=== PATIENT | male | born 1940 | race Caucasian/White ===

== ENCOUNTER 2019-06-18 12:06 | Emergency (ER) | payer MEDICARE, MEDICAID ==
[~2019-06-18] VITALS: Ht 167.6 cm; Wt 103.3 kg
[2019-06-18] MEDS ORDERED: LAMO200T2 PO (12:44)
[2019-06-18] MEDS ORDERED: LISI-600 PO (12:44)
[2019-06-18] MEDS ORDERED: LAMO100T40 PO (12:44)
[2019-06-18] MEDS ORDERED: PRAV10TA39 PO (12:44)
[2019-06-18] MEDS ORDERED: ASPI-611 PO (12:44)
[2019-06-18 13:20] LABS: BASOPHILS % (AUTO) 0.6 % (0-1); EOSINOPHILS # (AUTO) 0.1 X10'3 (0-0.9); EOSINOPHILS % (AUTO) 2.1 % (0-6); HEMATOCRIT 39.9 % (42.0-52.0); HEMOGLOBIN 13.5 g/dl (14.0-17.9); LYMPHOCYTES # (AUTO) 1.7 X10'3 (1.1-4.8); LYMPHOCYTES % (AUTO) 23.9 % (21-51); MEAN CORPUSCULAR HEMOGLOBIN 31.7 PG (27.0-31.0); MEAN CORPUSCULAR HGB CONC 33.8 g/dL (33.0-36.5); MEAN CORPUSCULAR VOLUME 93.7 FL (78-98); MEAN PLATELET VOLUME 8.6 FL (7.4-10.4); MONOCYTES # (AUTO) 0.6 X10'3 (0-0.9); NEUTROPHILS # (AUTO) 4.6 X10'3 (1.8-7.7); NEUTROPHILS % (AUTO) 65.4 % (42-75); PLATELET COUNT 224 X10'3 (140-440); RED BLOOD COUNT 4.25 X10'6 (4.70-6.10)
[2019-06-18 13:28] LABS: PARTIAL THROMBOPLASTIN TIME 28 SECONDS (22-32)
[2019-06-18 13:29] VITALS: BP 150/85
[2019-06-18 13:30] LABS: ALANINE AMINOTRANSFERASE 27 U/L (12-78); ALBUMIN 3.3 G/DL (3.4-5.0); ALBUMIN/GLOBULIN RATIO 0.7 (1.1-1.5); ALKALINE PHOSPHATASE 88 IU/L (46-116); ANION GAP 7 (8-16); ASPARTATE AMINO TRANSFERASE 17 U/L (10-37); BILIRUBIN,TOTAL 0.2 MG/DL (0.1-1.0); BLOOD UREA NITROGEN 16 MG/DL (7-18); BUN/CREATININE RATIO 12.4 (5.4-32.0); CALCIUM 9.6 MG/DL (8.5-10.1); CHLORIDE 105 MMOL/L (99-107); CREATININE 1.29 MG/DL (0.60-1.10); GLUCOSE 113 MG/DL (70-104); POTASSIUM 4.2 MMOL/L (3.5-5.1); SODIUM 141 MMOL/L (135-145); TOTAL PROTEIN 7.8 G/DL (6.4-8.2); eGFR 54 ML/MIN
[2019-06-18 13:33] LABS: TROPONIN I < 0.04 NG/ML (0.0-0.05)
[2019-06-18 13:44] LABS: ETHANOL < 0.010 GM/DL (0.0-0.010)
[2019-06-18 14:22] LABS: CLARITY,URINE SLIGHTLY CLOUDY (Clear); COLOR,URINE YELLOW (Yellow); GLUCOSE, URINE NEGATIVE (Neg); KETONES,URINE NEGATIVE (Neg); LEUKOCYTE ESTERASE ,URINE SMALL (Neg); NITRITES, URINE NEGATIVE (Neg); OCCULT BLOOD,URINE TRACE-INTACT (Neg); PROTEIN,URINE TRACE mg/dl (Neg); UROBILINOGEN,URINE 0.2 E.U/dL (0.2-1.0)
[2019-06-18 14:24] LABS: UA COLLECTION TYPE URINAL
[2019-06-18 14:28] LABS: URINE AMPHETAMINE SCREEN NEGATIVE (Neg); URINE BARBITUATE SCREEN NEGATIVE (Neg); URINE BENZODIAZEPINES SCREEN NEGATIVE (Neg); URINE CANNABINOID SCREEN NEGATIVE (Neg); URINE COCAINE SCREEN NEGATIVE (Neg); URINE METHADONE SCREEN NEGATIVE (Neg); URINE OPIATE SCREEN NEGATIVE (Neg); URINE PHENCYCLIDINE SCREEN NEGATIVE (Neg)
[2019-06-18 14:48] LABS: BACTERIA,URINE 1+ /HPF (Neg); RBC,URINE 0-2 /HPF (0-2); SQUAMOUS EPITHELIAL CELL,UR MODERATE /LPF (FEW); WBC,URINE 50-100 /HPF (0-4)
[2019-06-18 14:49] LABS: MUCUS STRANDS MANY /LPF (Neg)
== END 2019-06-18 15:00 | disposition home or self-care (01) ==
LOC: ER 12:07
DX: F91.9 Conduct disorder, unspecified (principal); Z79.82 Long term (current) use of aspirin; Z79.899 Other long term (current) drug therapy; Z79.01 Long term (current) use of anticoagulants
CPT/HCPCS: 36415; 70450; 71045; 80053; 80305; 80320; 81001; 84484; 85025; 85610; 85730; 87088; 93005; 99284

== ENCOUNTER 2019-12-02 15:58 | Emergency (ER) | payer MEDICARE, MEDICAID ==
[~2019-12-02] VITALS: Ht 167.6 cm; Wt 90.9 kg
[~2019-12-02 15:58] MED LIST: ASPI-611 PO; LAMO100T40 PO; LAMO200T2 PO; LISI-600 PO; PRAV10TA39 PO
[2019-12-02] MEDS ORDERED: normal saline 1000ML IV soln IV ONE (16:40)
[2019-12-02] MEDS ORDERED: acetaminophen 325mg tablet PO STA (17:34)
--- NOTE | 2019-12-02 17:36 | NUR ---
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
[2019-12-02 17:52] LABS: BASOPHILS % (AUTO) 0.5 % (0-1); EOSINOPHILS # (AUTO) 0.1 X10'3 (0-0.9); EOSINOPHILS % (AUTO) 1.4 % (0-6); HEMATOCRIT 44.8 % (42.0-52.0); HEMOGLOBIN 15.1 g/dl (14.0-17.9); LYMPHOCYTES # (AUTO) 1.6 X10'3 (1.1-4.8); LYMPHOCYTES % (AUTO) 18.8 % (21-51); MEAN CORPUSCULAR HEMOGLOBIN 31.2 PG (27.0-31.0); MEAN CORPUSCULAR HGB CONC 33.6 g/dL (33.0-36.5); MEAN CORPUSCULAR VOLUME 92.8 FL (78-98); MEAN PLATELET VOLUME 9.1 FL (7.4-10.4); MONOCYTES # (AUTO) 0.5 X10'3 (0-0.9); MONOCYTES % (AUTO) 6.1 % (2-12); NEUTROPHILS # (AUTO) 6.1 X10'3 (1.8-7.7); NEUTROPHILS % (AUTO) 73.2 % (42-75); PLATELET COUNT 243 X10'3 (140-440); RED BLOOD COUNT 4.83 X10'6 (4.70-6.10); RED CELL DISTRIBUTION WIDTH 14.3 % (11.5-14.5); WHITE BLOOD COUNT 8.3 X10'3 (4.5-11.0)
[2019-12-02 18:28] LABS: CLARITY,URINE SLIGHTLY CLOUDY (Clear); COLOR,URINE YELLOW (Yellow); GLUCOSE, URINE NEGATIVE (Neg); KETONES,URINE TRACE mg/dl (Neg); LEUKOCYTE ESTERASE ,URINE NEGATIVE (Neg); NITRITES, URINE NEGATIVE (Neg); OCCULT BLOOD,URINE NEGATIVE (Neg); PROTEIN,URINE 30 mg/dl (Neg); UROBILINOGEN,URINE 0.2 E.U/dL (0.2-1.0)
[2019-12-02 18:33] LABS: UA COLLECTION TYPE VOIDED
[2019-12-02 18:42] LABS: ALANINE AMINOTRANSFERASE 17 U/L (12-78); ALBUMIN 3.3 G/DL (3.4-5.0); ALBUMIN/GLOBULIN RATIO 0.8 (1.1-1.5); ALKALINE PHOSPHATASE 78 IU/L (46-116); ANION GAP 6 (8-16); ASPARTATE AMINO TRANSFERASE 15 U/L (10-37); BILIRUBIN,TOTAL 0.3 MG/DL (0.1-1.0); BLOOD UREA NITROGEN 13 MG/DL (7-18); BUN/CREATININE RATIO 8.1 (5.4-32.0); CALCIUM 8.8 MG/DL (8.5-10.1); CHLORIDE 106 MMOL/L (99-107); CREATININE 1.61 MG/DL (0.60-1.10); GLUCOSE 102 MG/DL (70-104); POTASSIUM 3.9 MMOL/L (3.5-5.1); SODIUM 141 MMOL/L (135-145); TOTAL CARBON DIOXIDE 28.9 MMOL/L (24-32); TOTAL PROTEIN 7.4 G/DL (6.4-8.2); eGFR 42 ML/MIN
[2019-12-02 18:44] LABS: BACTERIA,URINE NONE SEEN /HPF (Neg); MUCUS STRANDS FEW /LPF (Neg); RBC,URINE 0-2 /HPF (0-2); RENAL CELLS, URINE FEW /HPF; SQUAMOUS EPITHELIAL CELL,UR MODERATE /LPF (FEW); WBC,URINE 0-4 /HPF (0-4)
--- NOTE | 2019-12-02 19:35 | NUR ---
pt with stable vs and no pain. Pt now DC ready. Afebriile.
[2019-12-02 19:36] VITALS: BP 129/79
--- NOTE | 2019-12-02 19:55 | NUR ---
Pts ride here for DC. Pt assisted into WC for DC.Just prior to leaving, having episode of right frontal , behind ther right eye, head pain. States this is chronic and it will go away with holding pressure or his wet cold washcloth to the eye. states this is why he is takinig the lamotragine.
--- NOTE | 2019-12-03 11:39 | NUR ---
Patients blood culture resulted a postive result. Dr. Mckenna stated to call patient and check for worsening or continued symptoms. Patient reported that he was feeling much better and no longer had a headache. Dr. Mckenna stated that no prescription was needed at this time. Patient informed that if symptoms worsened, he could always return.
== END 2019-12-02 19:57 | disposition home or self-care (01) ==
LOC: ER 15:59
DX: E86.0 Dehydration (principal); Z20.828 Contact with and (suspected) exposure to other viral communicable diseases; B34.9 Viral infection, unspecified; R53.1 Weakness; R51 Headache; R50.9 Fever, unspecified; Z79.82 Long term (current) use of aspirin; Z79.899 Other long term (current) drug therapy
CPT/HCPCS: 36415; 71045; 80053; 81001; 83605; 84145; 85025; 87040; 87077; 87186; 87635; 93005; 96360; 99285; J7030

== ENCOUNTER 2019-12-11 17:26 | Emergency (ER) | payer MEDICARE, MEDICAID ==
[~2019-12-11] VITALS: Ht 167.6 cm; Wt 100.0 kg
[2019-12-11 17:33] VITALS: BP 172/78
[2019-12-11] MEDS ORDERED: gabapentin 400mg capsule PO STA (17:38)
[2019-12-11] MEDS ORDERED: LAMO250T2 PO (17:42)
[2019-12-11] MEDS ORDERED: GABA300C PO (17:42)
--- NOTE | 2019-12-11 17:59 | NUR ---
Patient seen and assessed by provider.
== END 2019-12-11 17:59 | disposition home or self-care (01) ==
LOC: ER 17:27
DX: R51 Headache (principal); G62.9 Polyneuropathy, unspecified; Z79.82 Long term (current) use of aspirin; Z79.899 Other long term (current) drug therapy
CPT/HCPCS: 99283

== ENCOUNTER 2020-01-04 18:05 | Inpatient (IN) | payer MEDICARE, MEDICAID ==
[~2020-01-04] VITALS: Ht 170.2 cm; Wt 100.0 kg
[~2020-01-04 18:05] MED LIST changes: +CefTRIAXone 2gm/D5W 50ml 50 ML IV SCH; +GABA300C PO; +LAMO250T2 PO
[2020-01-04] MEDS ORDERED: normal saline 1000ML IV soln IVB ONE ×2 (18:25→19:20)
--- NOTE | 2020-01-04 18:34 | NUR ---
Contacted first contact, granddaughter, who states she doesn't speak much to pt. anymore. Believes he lives with his GF "Pamella", doesn't have a number and doesn't know anything about PMH. 2nd contact is daughter, granddaughter states she doesn't talk to pt. anymore either.
[2020-01-04 18:44] LABS: BASOPHILS % (AUTO) 0.5 % (0-1); EOSINOPHILS # (AUTO) 0.1 X10'3 (0-0.9); EOSINOPHILS % (AUTO) 0.8 % (0-6); HEMATOCRIT 43.1 % (42.0-52.0); HEMOGLOBIN 14.5 g/dl (14.0-17.9); LYMPHOCYTES # (AUTO) 0.9 X10'3 (1.1-4.8); LYMPHOCYTES % (AUTO) 10.7 % (21-51); MEAN CORPUSCULAR HEMOGLOBIN 30.9 PG (27.0-31.0); MEAN CORPUSCULAR HGB CONC 33.6 g/dL (33.0-36.5); MEAN CORPUSCULAR VOLUME 91.9 FL (78-98); MEAN PLATELET VOLUME 8.6 FL (7.4-10.4); MONOCYTES # (AUTO) 0.3 X10'3 (0-0.9); MONOCYTES % (AUTO) 3.9 % (2-12); NEUTROPHILS # (AUTO) 7.2 X10'3 (1.8-7.7); NEUTROPHILS % (AUTO) 84.1 % (42-75); PLATELET COUNT 216 X10'3 (140-440); RED CELL DISTRIBUTION WIDTH 14.3 % (11.5-14.5); WHITE BLOOD COUNT 8.6 X10'3 (4.5-11.0)
[2020-01-04 18:51] LABS: PARTIAL THROMBOPLASTIN TIME 27 SECONDS (22-32)
[2020-01-04 18:53] LABS: ALANINE AMINOTRANSFERASE 16 U/L (12-78); ALBUMIN 3.6 G/DL (3.4-5.0); ALBUMIN/GLOBULIN RATIO 0.9 (1.1-1.5); ALKALINE PHOSPHATASE 70 IU/L (46-116); ANION GAP 14 (8-16); ASPARTATE AMINO TRANSFERASE 18 U/L (10-37); BILIRUBIN,TOTAL 0.5 MG/DL (0.1-1.0); BLOOD UREA NITROGEN 20 MG/DL (7-18); BUN/CREATININE RATIO 14.2 (5.4-32.0); CALCIUM 9.7 MG/DL (8.5-10.1); CHLORIDE 105 MMOL/L (99-107); CREATININE 1.41 MG/DL (0.60-1.10); GLUCOSE 142 MG/DL (70-104); POTASSIUM 3.6 MMOL/L (3.5-5.1); SODIUM 143 MMOL/L (135-145); TOTAL CARBON DIOXIDE 24.5 MMOL/L (24-32); TOTAL PROTEIN 7.8 G/DL (6.4-8.2); eGFR 49 ML/MIN
[2020-01-04 18:56] LABS: ETHANOL < 0.010 GM/DL (0.0-0.010); LIPASE 173 U/L (73-393); TROPONIN I < 0.04 NG/ML (0.0-0.05)
[2020-01-04 18:58] LABS: LACTIC SEPSIS 1.4 MMOL/L (0.4-2.0)
[2020-01-04 18:59] LABS: AMMONIA < 10 UMOL/L (11-32)
[2020-01-04 19:17] LABS: CLARITY,URINE SLIGHTLY CLOUDY (Clear); COLOR,URINE YELLOW (Yellow); GLUCOSE, URINE NEGATIVE (Neg); KETONES,URINE 40 mg/dl (Neg); LEUKOCYTE ESTERASE ,URINE NEGATIVE (Neg); NITRITES, URINE NEGATIVE (Neg); OCCULT BLOOD,URINE TRACE-INTACT (Neg); PH,URINE 5.5 (4.8-8.0); PROTEIN,URINE 100 mg/dl (Neg); UROBILINOGEN,URINE 0.2 E.U/dL (0.2-1.0)
[2020-01-04 19:19] LABS: UA COLLECTION TYPE STRAIGHT CATH
[2020-01-04] MEDS ORDERED: ondansetron/PF 4mg/2ml inj IV ONE (19:20)
[2020-01-04 19:25] LABS: MUCUS STRANDS MANY /LPF (Neg); SQUAMOUS EPITHELIAL CELL,UR MODERATE /LPF (FEW); TRANSITIONAL EPI CELLS,URINE MODERATE /HPF
[2020-01-04 19:27] LABS: URINE AMPHETAMINE SCREEN NEGATIVE (Neg); URINE BARBITUATE SCREEN NEGATIVE (Neg); URINE BENZODIAZEPINES SCREEN NEGATIVE (Neg); URINE CANNABINOID SCREEN NEGATIVE (Neg); URINE COCAINE SCREEN NEGATIVE (Neg); URINE METHADONE SCREEN NEGATIVE (Neg); URINE OPIATE SCREEN NEGATIVE (Neg); URINE PHENCYCLIDINE SCREEN NEGATIVE (Neg)
[2020-01-04 19:28] LABS: AMORPHOUS URATES 1+; BACTERIA,URINE FEW /HPF (Neg); RBC,URINE 0-2 /HPF (0-2)
--- NOTE | 2020-01-04 20:05 | NUR ---
MD Castle report that pt had stroke signs on CT with unknown time of onset and to activate level 2 stroke alert for the patient.
[2020-01-04] MEDS ORDERED: non-formulary drug (Lamotrigine* (Lamictal*) 1 TAB) PO SCH (21:00)
[2020-01-04] MEDS ORDERED: aspirin 81mg tab.chew PO SCH (21:00)
[2020-01-04] MEDS ORDERED: lamoTRIgine 100mg tablet PO SCH (21:00)
[2020-01-04] MEDS ORDERED: mag hydrox/Alum hydrox/simeth 30ml oral suspension PO PRN (21:05)
[2020-01-04] MEDS ORDERED: ondansetron/PF 4mg/2ml inj IV PRN (21:05)
[2020-01-04] MEDS ORDERED: acetaminophen 325mg tablet PO PRN ×2 (21:05)
[2020-01-04] MEDS ORDERED: magnesium Cl slow-release 64mg tablet PO PRN (21:05)
[2020-01-04] MEDS ORDERED: potassium Cl 20 mEq SR tablet PO PRN ×2 (21:05)
[2020-01-04] MEDS ORDERED: magnesium 2GM in 50ml NS 50 ML IV PRN (21:05)
[2020-01-04] MEDS ORDERED: magnesium 4gm in 100ml NS 100 ML IV PRN (21:05)
[2020-01-04] MEDS ORDERED: potassium CL 10mEq/100ml bag 100 ML IV PRN ×2 (21:05)
[2020-01-04 21:09] VITALS: BP 165/83
--- NOTE | 2020-01-04 22:00 | NUR ---
Patient in room [facility]. I have received report from Dread HASSAN and had the opportunity to ask questions and assume patient care.
--- NOTE | 2020-01-04 23:45 | NUR ---
Pt vomited and was suctioned. Wheezing but able to clear secretions
[2020-01-04] MEDS: CefTRIAXone 2gm/D5W 50ml 50 ML IV SCH (23:54)
[2020-01-04] MEDS: normal saline 1000ml 1,000 ML IV SCH (23:54)
--- NOTE | 2020-01-05 00:20 | NUR ---
Dr. Jimenez arrived to floor to eval pt for kidney stone symptoms, pt stated has had stones in past with severe pain, no surgery done previously, pt stated he was able to pass stones.
--- NOTE | 2020-01-05 00:30 | NUR ---
Right lip and nasal, labial fold are flat. Left eyelid Ptosis & Left eyebrow will not raise Addendum: 01/05/20 at 0121 by Jeanie Hannon RN Amended: Links added.
--- NOTE | 2020-01-05 00:30 | NUR ---
Patient has left eye droop/ ptosis and the eye brows will not lift on the left side; he has right facial droop of the upper lip and nasolabial fold on the right. He is very slurred in speech and tongue seems to be midline but does move to the right somewhat, he does have bilateral gag reflex when tested. He is very drowsy but when awakes he will joke appropriately with staff. Denies nausea and dizziness at this time. Addendum: 01/05/20 at 0159 by Kavita Joel RN Amended: Links added.
[2020-01-05 01:25] VITALS: BP 158/70
--- NOTE | 2020-01-05 02:20 | NUR ---
Paged Dr. Granados to let her know that I am concerned that patient looks like his stroke symptoms are worsening.
[2020-01-05] MEDS ORDERED: aspirin 300mg supp.rect RC ONE (02:25)
--- NOTE | 2020-01-05 02:26 | NUR ---
Dr. Granados was made aware of worsening of stroke like symptoms and is having the patient get a dose of asa per suppository since he can't swallow. I gave her my NIHSS score of 7 compared to the neurologist score of 3.
--- NOTE | 2020-01-05 02:57 | NUR ---
unable to assess vision loss Addendum: 01/05/20 at 0258 by Jeanie Hannon RN Amended: Links added.
--- NOTE | 2020-01-05 03:36 | NUR ---
Page Sent promotional table spacer PAGER ID: [phone] MESSAGE: Patient room #358 B -Surgical, [facility]. Pt had straight cath in ED, has not voided since arriving to floor. Bladder scan shows shows 680 mls. Please advise. Ankush HASSAN [id number]
--- NOTE | 2020-01-05 03:37 | NUR ---
Dr. Granados called back order straight cath once more, if patient still unable to void considering [facility]
[2020-01-05 04:37] LABS: BASOPHILS % (AUTO) 0.1 % (0-1); EOSINOPHILS % (AUTO) 0 % (0-6); HEMATOCRIT 40.3 % (42.0-52.0); HEMOGLOBIN 13.4 g/dl (14.0-17.9); LYMPHOCYTES # (AUTO) 1.2 X10'3 (1.1-4.8); LYMPHOCYTES % (AUTO) 12.9 % (21-51); MEAN CORPUSCULAR HEMOGLOBIN 30.8 PG (27.0-31.0); MEAN CORPUSCULAR HGB CONC 33.3 g/dL (33.0-36.5); MEAN CORPUSCULAR VOLUME 92.5 FL (78-98); MEAN PLATELET VOLUME 8.9 FL (7.4-10.4); MONOCYTES # (AUTO) 0.5 X10'3 (0-0.9); MONOCYTES % (AUTO) 4.9 % (2-12); NEUTROPHILS # (AUTO) 7.5 X10'3 (1.8-7.7); NEUTROPHILS % (AUTO) 82.1 % (42-75); PLATELET COUNT 213 X10'3 (140-440); RED BLOOD COUNT 4.36 X10'6 (4.70-6.10); WHITE BLOOD COUNT 9.2 X10'3 (4.5-11.0)
[2020-01-05 04:48] LABS: ALANINE AMINOTRANSFERASE 14 U/L (12-78); ALBUMIN 3.3 G/DL (3.4-5.0); ALBUMIN/GLOBULIN RATIO 0.9 (1.1-1.5); ALKALINE PHOSPHATASE 62 IU/L (46-116); ANION GAP 8 (8-16); ASPARTATE AMINO TRANSFERASE 15 U/L (10-37); BILIRUBIN,TOTAL 0.3 MG/DL (0.1-1.0); BLOOD UREA NITROGEN 15 MG/DL (7-18); BUN/CREATININE RATIO 12.1 (5.4-32.0); CALCIUM 8.5 MG/DL (8.5-10.1); CHLORIDE 108 MMOL/L (99-107); CHOL/HDL RATIO 6.8 (0.00-4.99); CHOLESTEROL 230 MG/DL (0-200); CREATININE 1.24 MG/DL (0.60-1.10); GLUCOSE 110 MG/DL (70-104); HDL CHOLESTEROL 34 MG/DL (35-60); LDL CHOLESTEROL 169 MG/DL (50-100); MAGNESIUM 1.9 MG/DL (1.5-2.4); POTASSIUM 3.7 MMOL/L (3.5-5.1); SODIUM 143 MMOL/L (135-145); TOTAL CARBON DIOXIDE 26.8 MMOL/L (24-32); TOTAL PROTEIN 7.1 G/DL (6.4-8.2); TRIGLYCERIDES 69 MG/DL (20-135); eGFR 56 ML/MIN
--- NOTE | 2020-01-05 04:50 | NUR ---
Just noted stat order for Carotid US, MRA, MRI. Paged sonography for the carotid study, however MRI & MRA cannot be done until 8am as they are not on-call.
[2020-01-05 05:20] VITALS: BP 178/79
--- NOTE | 2020-01-05 06:42 | NUR ---
Problems reprioritized. Patient report given, questions answered & plan of care reviewed with Yajaira Swain RN.
[2020-01-05 07:00] VITALS: BP 165/70
[2020-01-05] MEDS: normal saline 1000ml 1,000 ML IV SCH (07:01)
[2020-01-05] MEDS ORDERED: atorvastatin 20mg tablet PO SCH ×2 (08:00)
[2020-01-05] MEDS ORDERED: heparin, porcine 5000 units/ml vial SQ SCH (08:00)
[2020-01-05] MEDS ORDERED: pravastatin 10mg tablet PO SCH (08:00)
[2020-01-05] MEDS: CefTRIAXone 2gm/D5W 50ml 50 ML IV SCH (08:00)
[2020-01-05] MEDS ORDERED: lisinopril 10 MG tablet PO SCH (08:00)
[2020-01-05] MEDS ORDERED: tamsulosin 0.4mg capsule PO SCH (08:00)
[2020-01-05] MEDS ORDERED: K and/or MAG REPLACEMENT MC SCH (08:00)
[2020-01-05] MEDS ORDERED: docusate sod 100mg capsule PO SCH (08:00)
--- NOTE | 2020-01-05 08:03 | NUR ---
PATIENTS MENTATION IS WAXING AND WAYING, HE TALKS THEN FALLS ASLEEP. Addendum: 01/05/20 at 0813 by Yajaira Rajan RN Amended: Links added.
--- NOTE | 2020-01-05 08:05 | NUR ---
UNABLE TO CLEAR COUGH, SUCTION AT BEDSIDE. Addendum: 01/05/20 at 0813 by Yajaira Rajan RN Amended: Links added.
--- NOTE | 2020-01-05 09:38 | NUR ---
DR. REECE IN TO SEE PATIENT, WILL HOLD OFF ON SURGERY DUE MENTATION CHANGE.
[2020-01-05] MEDS ORDERED: LIDOcaine 2% 10ml TOPICAL JELLY (Urojet) TP ONE (10:50)
--- NOTE | 2020-01-05 11:15 | NUR ---
PATIENT TO MRI, STROKE NURSE IN TO SEE PATIENT
[2020-01-05 12:00] VITALS: BP 169/75
--- NOTE | 2020-01-05 13:00 | NUR ---
Neurotelemedicine exam completed, recommended cta head and neck stat and tranfer to endovascular center, Dr Amato notified and orders received. [facility]
[2020-01-05] MEDS ORDERED: iohexol 350MG/ML 100ml bottle IV ONE (13:10)
--- NOTE | 2020-01-05 13:15 | NUR ---
Spoke with Stroke nurse regarding patient transfer to [facility]. Patient to [facility]. on [employer] Girlfriend Mel [phone] Beatrice Dove number [phone]
--- NOTE | 2020-01-05 13:17 | NUR ---
PAGER ID: [phone] MESSAGE: [facility] 2412 Please call have a phone number for a radiologist that would like to speak w/ you re: babak. Dr Amato responded and I gave him the phone number for Dr Ruiz the Radiologist
--- NOTE | 2020-01-05 15:36 | NUR ---
Patient back from CT. Asked him whom we can give info to Daughter "he shook his head no", Granddaughter "he shook his head no", Mel "he shook his head YES" Called Ana supervisor silvering department and gave her the info. awaiting bed from [facility].
[2020-01-05 16:00] VITALS: BP 169/73
--- NOTE | 2020-01-05 16:03 | NUR ---
Yordan Consult: Yordan 12; skin intact. Addendum: 01/05/20 at [address] Amended: Links added.
--- NOTE | 2020-01-05 16:53 | NUR ---
called [phone] to set up transport for patient to [facility]. Per Transport patient is on the list for [place] [facility] with 1L O2. Transport is busy at this time with 911 calls and there is a transfer in the ER holding they will call us back with update on sweet pickle maker time spoke to Toshia. room 476B at [facility]
[2020-01-05 18:00] VITALS: BP 158/64
--- NOTE | 2020-01-05 18:49 | NUR ---
Problems reprioritized. Patient report given, questions answered & plan of care reviewed with Jessica HASSAN.
[2020-01-05] MEDS ORDERED: aspirin 81mg tab.chew PO SCH (21:00)
[2020-01-05] MEDS ORDERED: aspirin 325mg tablet PO SCH (21:00)
== END 2020-01-05 19:15 | disposition short-term general hospital (02) | DRG 65 ==
LOC: ER 18:05 → ED HOLD 21:01 → SUR 3N 22:19
PROVIDERS: ADMIT Internal Medicine; ATTEND Family Medicine
PROC: B3251ZZ Computerized Tomography (CT Scan) of Bilateral Common Carotid Arteries using Low Osmolar Contrast (ICD-10-PCS; principal; 2020-01-05)
PROC: B32G1ZZ Computerized Tomography (CT Scan) of Bilateral Vertebral Arteries using Low Osmolar Contrast (ICD-10-PCS; 2020-01-05)
PROC: B3281ZZ Computerized Tomography (CT Scan) of Bilateral Internal Carotid Arteries using Low Osmolar Contrast (ICD-10-PCS; 2020-01-05)
DX: I63.9 Cerebral infarction, unspecified (principal); N13.6 Pyonephrosis; E78.5 Hyperlipidemia, unspecified; F17.200 Nicotine dependence, unspecified, uncomplicated; I10 Essential (primary) hypertension; I65.1 Occlusion and stenosis of basilar artery; M79.7 Fibromyalgia; Z86.73 Personal history of transient ischemic attack (TIA), and cerebral infarction without residual deficits; Z87.442 Personal history of urinary calculi; Z79.899 Other long term (current) drug therapy; Z79.82 Long term (current) use of aspirin
CPT/HCPCS: 36415; 70450; 70496; 70544; 70551; 71045; 71250; 74176; 80053; 80061; 80305; 80320; 81001; 82140; 83605; 83690; 83735; 84145; 84484; 85025; 85610; 85730; 87040; 87081; 87088; 93306; 93880; 96361; 96374; 99285; G0378; J0696; J2405; J7030; Q9967